=== PATIENT | male | born 1970 | race Caucasian/White ===

== ENCOUNTER 2019-12-08 15:02 | Emergency (ER) | payer BC ==
[~2019-12-08] VITALS: Ht 175.2 cm; Wt 90.7 kg
[~2019-12-08 15:02] MED LIST: KEFLEX500 MG PO; MOTRIN800 MG PO; NEXIUM20 MG PO; VICODIN 5/500 505 MG PO
[2019-12-08 15:25] VITALS: BP 131/75
== END 2019-12-08 18:44 | disposition home or self-care (01) ==
LOC: ED 15:02
DX: S52.501A Unspecified fracture of the lower end of right radius, initial encounter for closed fracture (principal); R07.81 Pleurodynia; M54.6 Pain in thoracic spine; Z79.899 Other long term (current) drug therapy; Z98.890 Other specified postprocedural states; V87.8XXA Person injured in other specified noncollision transport accidents involving motor vehicle (traffic), initial encounter; Y93.I9 Activity, other involving external motion; Y92.488 Other paved roadways as the place of occurrence of the external cause; Y99.8 Other external cause status

== ENCOUNTER → 2020-08-18 | Outpatient (CLI) | payer BC | END | disposition home or self-care (01) | LOC: COVID19 13:18 | PROVIDERS: ATTEND Family Medicine | DX: U07.1 COVID-19 (principal) ==

== ENCOUNTER → 2024-08-03 | Outpatient (CLI) | payer OTHER | END | disposition home or self-care (01) | LOC: ORTHO 07:48 | PROVIDERS: ATTEND Orthopaedic Surgery | DX: M25.511 Pain in right shoulder (principal) ==